=== PATIENT | female | born 2000 | race Caucasian/White ===

== ENCOUNTER 2025-05-19 19:45 | Inpatient (IN) | payer MEDICAID ==
[~2025-05-19] VITALS: Ht 167.6 cm; Wt 77.1 kg
[2025-05-19 19:50] VITALS: O2SAT 99
[2025-05-19 20:44] LABS: BASOPHILS % 0.3 % (0.0-2.0); EOSINOPHILS % 9.5 % (0.0-5.0); HEMATOCRIT. 37.3 % (36.0-48.0); HEMOGLOBIN. 12.3 g/dL (12.0-16.0); LYMPHOCYTES % 10.3 % (20.0-50.0); MEAN PLATELET VOLUME 7.8 fl (7.4-10.4); MONOCYTES % 5.0 % (2.0-8.0); NEUTROPHILS % 74.9 % (40.0-76.0); PLATELET 307 x1000/uL (130-400); RED BLOOD CELL COUNT 4.35 mill/uL (4.2-5.4); RED CELL DISTRIBUTION WIDTH 14.5 % (11.6-14.6)
[2025-05-19] MEDS: MAGNESIUM/ALUMINUM HYDROXIDE/SIMETHICONE 30ML UDC PO ONE (20:55)
[2025-05-19] MEDS: METOCLOPRAMIDE 10MG/10 ML UDC PO ONE (20:55)
[2025-05-19] MEDS: KETOROLAC 15MG/ML VIAL IM ONE (20:56)
[2025-05-19 20:59] LABS: CREATININE 0.8 mg/dL (0.6-1.0); UREA NITROGEN BLOOD 13 mg/dL (9-23)
[2025-05-19 21:01] LABS: ASPARTATE AMINOTRANSFERASE 29 IU/L (<34); BILIRUBIN DIRECT 0.1 mg/dL (<=3.0); BILIRUBIN TOTAL 0.4 mg/dL (0.1-1.0); PROTEIN TOTAL 7.0 g/dL (6.0-8.3)
[2025-05-19 21:08] LABS: CLARITY URINE CLOUDY (CLEAR); COLOR URINE YELLOW (YELLOW); GLUCOSE URINE NEGATIVE (NEGATIVE); KETONES URINE 3+ (NEGATIVE); LEUKOCYTE ESTERASE URINE TRACE (NEGATIVE); NITRITE URINE NEGATIVE (NEGATIVE); OCCULT BLOOD URINE 3+ (NEGATIVE); PH URINE 5.5 (4.5-8.0); PROTEIN URINE 1+ (NEGATIVE); SPECIFIC GRAVITY URINE 1.035 (1.005-1.030); UROBILINOGEN URINE 1.0 E.U./dL (0.2-1.0)
[2025-05-19 22:08] LABS: BACTERIA URINE 2+; CALCIUM OXALATE CRYSTALS URINE 1+ /lpf; SQUAMOUS EPITHELIAL CELL URINE 2+ /lpf (RARE/1+)
[2025-05-19] MEDS: SODIUM CHLORIDE 0.9% (SEPSIS BOLUS) IV ONE (22:08)
[2025-05-19] MEDS: METRONIDAZOLE 500 MG PREMIX 100 ML IV ONE (22:09)
[2025-05-19] MEDS ORDERED: METRONIDAZOLE 500 MG PREMIX 100 ML IV SCH (22:15)
[2025-05-19] MEDS ORDERED: HYDROCODONE/ACETAMINOPHEN 5/325MG TABLET PO PRN (22:15)
[2025-05-19] MEDS ORDERED: CLONIDINE 0.1MG TABLET PO PRN (22:15)
[2025-05-19] MEDS ORDERED: MORPHINE SULFATE 2 MG/ML INJ (NOT FOR IM USE) IV PRN (22:15)
[2025-05-19] MEDS ORDERED: ZOLPIDEM TARTRATE 5MG TABLET PO PRN (22:15)
[2025-05-19] MEDS ORDERED: ACETAMINOPHEN 325MG TABLET PO PRN (22:15)
[2025-05-19] MEDS ORDERED: LEVOFLOXACIN 500MG PREMIX 100 ML IV SCH (22:15)
[2025-05-19] MEDS ORDERED: ONDANSETRON HCL 4MG/2ML INJ IV PRN (22:15)
[2025-05-19] MEDS ORDERED: MAGNESIUM/ALUMINUM HYDROXIDE/SIMETHICONE 30ML UDC PO PRN (22:15)
[2025-05-19 22:51] LABS: INR 1.0
[2025-05-19] MEDS: LEVOFLOXACIN 750MG PREMIX 150 ML IV ONE (23:02)
[2025-05-19] MEDS ORDERED: MVI, ADULT NO.1 10 ML, FOLIC ACID 1 MG, THIAMINE HCL 100 MG in SODIUM CHLORIDE 0.9% 1,0... IV SCH (23:30)
[2025-05-20 02:04] VITALS: BP 115/78; PULSE 78; RESP 18; TEMP 36.4736
[2025-05-20] MEDS ORDERED: NALOXONE HCL 0.4MG/ML VIAL IV PRN (07:30)
[2025-05-20] MEDS: SODIUM CHLORIDE 0.9% 1,000 ML IV SCH (07:51)
[2025-05-20 08:00] VITALS: BP 106/72; PULSE 66; RESP 15; TEMP 36.2; O2SAT 99
[2025-05-20] MEDS: METRONIDAZOLE 500 MG PREMIX 100 ML IV SCH (08:04)
[2025-05-20] MEDS: ENOXAPARIN 40MG/0.4ML SYR SUBCUT SCH (10:12)
[2025-05-20] MEDS: PANTOPRAZOLE SODIUM 40 MG/VIAL IV SCH (10:12)
[2025-05-20] MEDS: MVI, ADULT NO.1 10 ML, FOLIC ACID 1 MG, THIAMINE HCL 100 MG in SODIUM CHLORIDE 0.9% 1,0... IV SCH (10:13)
[2025-05-20 12:00] VITALS: BP 117/68; PULSE 67; RESP 18; TEMP 36.7; O2SAT 100
[2025-05-20 13:20] LABS: HEMATOCRIT. 35.1 % (36.0-48.0); HEMOGLOBIN. 11.7 g/dL (12.0-16.0); MEAN PLATELET VOLUME 7.9 fl (7.4-10.4); PLATELET 286 x1000/uL (130-400); RED BLOOD CELL COUNT 4.11 mill/uL (4.2-5.4); RED CELL DISTRIBUTION WIDTH 14.8 % (11.6-14.6)
[2025-05-20 13:34] LABS: CREATININE 0.6 mg/dL (0.6-1.0); UREA NITROGEN BLOOD 7 mg/dL (9-23)
[2025-05-20 14:12] LABS: HEPATITIS C AB NON REACTIVE (Neg) (Negative)
[2025-05-20 15:06] LABS: *AMPHETAMINES SCREEN URINE NEGATIVE (NEGATIVE); *BARBITURATES SCREEN URINE NEGATIVE (NEGATIVE); *BENZODIAZEPINES SCREEN URINE NEGATIVE (NEGATIVE)
[2025-05-20 15:07] LABS: *COCAINE SCREEN URINE NEGATIVE (NEGATIVE); METHADONE URINE SCREEN NEGATIVE (NEGATIVE)
[2025-05-20 15:08] LABS: CANNABINOID URINE SCREEN NEGATIVE (NEGATIVE); OPIATES URINE SCREEN NEGATIVE (NEGATIVE); PHENCYCLIDINE URINE SCREEN NEGATIVE (NEGATIVE)
[2025-05-20 15:09] LABS: ECSTASY MDMA SCREEN URINE NEGATIVE (NEGATIVE)
[2025-05-20 16:00] VITALS: BP 124/61; PULSE 62; RESP 16; TEMP 36.4; O2SAT 98
[2025-05-20 16:27] LABS: MONOCYTES % MANUAL 2.0 % (2.0-8.0)
[2025-05-20 16:28] LABS: EOSINOPHILS % MANUAL 19.0 % (0.0-5.0); LYMPHOCYTES % MANUAL 22.0 % (20.0-60.0); NEUTROPHILS % MANUAL 57.0 % (45.0-75.0); PLATELET ESTIMATE NORMAL
[2025-05-20 20:00] VITALS: BP 104/67; PULSE 67; RESP 18; TEMP 36.8; O2SAT 100
[2025-05-20] MEDS: LEVOFLOXACIN 750MG PREMIX 150ML IV SCH (20:12)
[2025-05-21] VITALS: BP 110/78; PULSE 62; RESP 18; TEMP 36.7; O2SAT 100
[2025-05-21 04:00] VITALS: BP 98/53; PULSE 59; RESP 18; TEMP 36.6; O2SAT 100
[2025-05-21 08:00] VITALS: BP 109/66; PULSE 55; RESP 17; TEMP 36.7; O2SAT 100
[2025-05-21 08:31] LABS: HEMATOCRIT. 33.5 % (36.0-48.0); HEMOGLOBIN. 11.4 g/dL (12.0-16.0); MEAN PLATELET VOLUME 7.8 fl (7.4-10.4); PLATELET 273 x1000/uL (130-400); RED BLOOD CELL COUNT 3.90 mill/uL (4.2-5.4); RED CELL DISTRIBUTION WIDTH 14.7 % (11.6-14.6)
[2025-05-21 08:48] LABS: CREATININE 0.6 mg/dL (0.6-1.0); UREA NITROGEN BLOOD 7 mg/dL (9-23)
[2025-05-21] MEDS ORDERED: THIA100T72 MT (10:04)
[2025-05-21] MEDS ORDERED: ONDA4TAB50 MT (10:04)
[2025-05-21] MEDS ORDERED: FAMO-135 MT (10:04)
[2025-05-21 10:10] VITALS: BP 109/66; PULSE 55; RESP 17; TEMP 98.1
[2025-05-22 15:03] LABS: LYMPHOCYTES % MANUAL 29.0 % (20.0-60.0); MONOCYTES % MANUAL 2.0 % (2.0-8.0); NEUTROPHILS % MANUAL 47.0 % (45.0-75.0)
[2025-05-22 15:04] LABS: EOSINOPHILS % MANUAL 22.0 % (0.0-5.0); PLATELET ESTIMATE NORMAL
== END 2025-05-21 12:24 | disposition home or self-care (01) | DRG 241 ==
LOC: ER 19:45 → 8EST 21:44 → EDBEDREQ 21:47 → EDBEDREQTM 21:47 → EDBEDREQ 21:50 → ENRESERV 22:22
PROVIDERS: ADMIT Internal Medicine; ATTEND Internal Medicine
DX: K29.70 Gastritis, unspecified, without bleeding (principal); E03.9 Hypothyroidism, unspecified; K52.9 Noninfective gastroenteritis and colitis, unspecified; Z98.84 Bariatric surgery status; N39.0 Urinary tract infection, site not specified
CPT/HCPCS: 36415; 74176; 80048; 80076; 80305; 81003; 83605; 84145; 84443; 85025; 86705; 87340; 93970; 99285; J1650; J1885; J1956; J2470; J3411; J3490; J7030; J8597

== ENCOUNTER 2025-06-07 15:31 | Emergency (ER) | payer MEDICAID ==
[~2025-06-07 15:31] MED LIST: FAMO-135 MT; ONDA4TAB50 MT; THIA100T72 MT
== END 2025-06-07 16:46 | disposition left against medical advice (07) ==
LOC: ER 15:31
DX: R11.2 Nausea with vomiting, unspecified (principal); Z53.21 Procedure and treatment not carried out due to patient leaving prior to being seen by health care provider